=== PATIENT | male | born 1945 | race Caucasian/White ===

== ENCOUNTER 2017-05-31 07:24 | Outpatient (CLI) | payer MEDICARE ==
[~2017-05-31] VITALS: Ht 180.3 cm; Wt 61.4 kg
--- NOTE | ~2017-05-31 | OR ---
PATIENT'S NAME: [facility] AGE: 72 Y [address] ROOM: [place] [id number] LOCATION: [facility] ADMIT DATE: 05/31/2017 OR/Procedure Report DISCHARGE DATE: 05/31/2017 FAMILY PHYSICIAN: Hermann Maldonado MD ATTENDING PHYSICIAN: Uriel Wagoner SURGEON: Uriel Wagoner MD CLINICAL THERAPIST: legal document assistant Dr. Vivian Felix. DATE OF PROCEDURE: 05/31/2017 PREOPERATIVE DIAGNOSIS: Poorly functional left arm arteriovenous fistula. POSTOPERATIVE DIAGNOSIS: Poorly functional left arm arteriovenous fistula. PROCEDURE: Left arm fistulogram and fistuloplasty with central venous stenosis. ANESTHESIA: MAC local. ESTIMATED FLUID LOSS: 10 mL. FINDINGS: Near occlusion at the central venous portion, which was recanalized at the end of the case. DESCRIPTION OF PROCEDURE: The patient was brought to the label folder, placed supine on the label folder table, prepped and draped in a sterile manner. Preoperative time-out was performed. The patient received preoperative antibiotics. We used ultrasound guidance to gain access to the left arm brachiocephalic fistula. We exchanged using Seldinger technique for a 4- Czech short sheath. We performed a series of fistulograms, which showed a patent outflow of vein tract, but then they had blocked occlusion in the central venous area, right below the subclavian with drainage via collateral flow. We crossed the lesion with 0.018 3-way wire, we gave 5000 units of heparin. We then proceeded with balloon angioplasty of this lesion with first a 6 x 40, then ultimately 8 x 40 balloon relieving the occlusion. There was excellent drainage from the fistula and reduction of flow through the collaterals. Sheath was removed. A single 4-0 nylon stitch was placed. Heparin was reversed. So, used protamine. The patient received a total of 5000 units of heparin for the case. The patient tolerated the procedure well and transferred to the recovery room and home later that day. URIEL WAGONER MD PATIENT'S NAME: [facility] AGE: 72 Y [address] ROOM: [place], [place] [address] LOCATION: [facility] ADMIT DATE: 05/31/2017 OR/Procedure Report DISCHARGE DATE: 05/31/2017 FAMILY PHYSICIAN: Hermann Maldonado MD ATTENDING PHYSICIAN: Uriel Wagoner/tonja /[id number] d: [birth year]01/177 t: 06/09/17 1720, OPERATIVE SUMMARY
[~2017-05-31 07:24] MED LIST: ASPIRIN (CHILDR81 MG PO; CATAPRES0.1 MG PO; COLACE100 MG PO; COREG25 MG PO; EAR WAX DROPS15 ML OTIC; EPOGEN (2020000 UNIT IV; IPRAT-ALBUT 0.5-3 ML INH; LEVAQUIN500 MG PO; LIPITOR80 MG PO; NORCO 5-325 TA1 EACH PO; PHOSLO667 MG PO; PLAVIX75 MG PO; PRINIVIL OR ZES10 MG PO; PROVENTIL OR V6.7 GM INH; THERAGRAN-M1 TAB PO; VENOFER100 MG/5 M IV; [UNRECOGNIZED DRUG - REMARK] INH
== END 2017-05-31 14:32 | disposition disaster alternative care site (69) ==
LOC: GCAT 07:24 → GPCU 07:24 → GCAT 14:32
PROC: 05H933Z Insertion of Infusion Device into Right Brachial Vein, Percutaneous Approach (ICD-10-PCS; principal; 2017-05-31)
PROC: 03773ZZ Dilation of Right Brachial Artery, Percutaneous Approach (ICD-10-PCS; 2017-05-31)
DX: M79.601 Pain in right arm (principal); E78.5 Hyperlipidemia, unspecified
CPT/HCPCS: C1725; J0690; J1644; J2001; J2250; J2720; J3010; J7030